=== PATIENT | female | born 1980 ===

== ENCOUNTER 2017-06-30 11:16 | Emergency (ER) | payer SELFPAY ==
[2017-06-30 11:34] VITALS: BP 102/67; PULSE 78; RESP 20; TEMP 98.3; O2SAT 99
--- NOTE | 2017-06-30 13:12 | ED PDOC ---
Lower Extremity Pain/Injury Time Seen by Provider: 06/30/17 11:41 Chief Complaint (Nursing): Lower Extremity Problem/Injury Chief Complaint (Provider): Knee pain, bilateral for 2 weeks History Per: Patient History/Exam Limitations: no limitations Onset/Duration Of Symptoms: Days Current Symptoms Are (Timing): Still Present Severity: Moderate Pain Scale Rating Of: 7 Additional Complaint(s): PT states she has been taking tylenol at home but it is not helping. No fever/ chills. No edema. No trauma. PT has history of knee pain and has had surgery on both knees. Pt states she is not sure of that the surgery was. Past Medical History Reviewed: Historical Data, Nursing Documentation, Vital Signs Vital Signs: Last Vital Signs Temp 98.3 F 06/30/17 11:32 Pulse 78 06/30/17 11:32 Resp 20 06/30/17 11:32 BP 102/67 06/30/17 11:32 Pulse Ox 99 06/30/17 11:32 - Medical History PMH: No Chronic Diseases Other PMH: Knee surgery - Family History Family History: States: No Known Family Hx - Living Arrangements Living Arrangements: With Family - Social History Current smoker - smoking cessation education provided: No Alcohol: None Drugs: Denies - Home Medications Home Medications: Ambulatory Orders Medication Instructions Recorded Ibuprofen [Motrin Tab] 800 mg PO Q6H PRN #20 tab 06/30/17 - Allergies Allergies/Adverse Reactions: Allergies Allergy/AdvReac Type Severity Reaction Status Date / Time No Known Allergies Allergy Verified 06/30/17 11:32 Review of Systems ROS Statement: Except As Marked, All Systems Reviewed And Found Negative Constitutional: Negative for: Fever, Chills, Weakness, Malaise Cardiovascular: Negative for: Chest Pain Musculoskeletal: Positive for: Other (Knee pain) Skin: Negative for: Rash, Bruising Physical Exam - Reviewed Nursing Documentation Reviewed: Yes Vital Signs Reviewed: Yes - Physical Exam Appears: Positive for: Well, Non-toxic, No Acute Distress Head Exam: Positive for: ATRAUMATIC, NORMAL INSPECTION, NORMOCEPHALIC Skin: Positive for: Normal Color (No erythema, no ecchymosis, no lesions of the knees ), Warm Eye Exam: Positive for: Normal appearance ENT: Positive for: Normal ENT Inspection Neck: Positive for: Normal, Painless ROM Respiratory: Negative for: Accessory Muscle Use, Respiratory Distress Pulses-Dorsalis Pedis (L): 2+ Pulses-Dorsalis Pedis (R): 2+ Pulses-Post. Tibialis (L): 2+ Pulses-Post. Tibialis (R): 2+ Back: Positive for: Normal Inspection Extremity: Negative for: Normal ROM (Decreased flexion due to pain ), Tenderness , Deformity, Swelling Neurologic/Psych: Positive for: Alert, Oriented - ECG O2 Sat by Pulse Oximetry: 99 Medical Decision Making Medical Decision Making: x-ray without acute finding. Disposition - Clinical Impression Clinical Impression: Knee pain, bilateral - Patient ED Disposition Is Patient to be Admitted: No Counseled Patient/Family Regarding: Diagnosis, Need For Followup, Rx Given - Disposition Referrals: Johanna Holden MD [Staff Provider] - [facility] [Outside] Disposition: Routine/Home Disposition Time: 13:11 Condition: FAIR Additional Instructions: Ice, elevation. Motrin for pain. Follow-up with orthopedics. Prescriptions: Ibuprofen [Motrin Tab] 800 mg PO Q6H PRN #20 tab PRN Reason: Pain Instructions: Knee Pain (ED) Print Language: UPPER SORBIAN
--- NOTE | 2017-06-30 14:40 | RAD ---
PROCEDURE: Bilateral Knee Radiographs. HISTORY: bilateral knee pain, history of knee surgery COMPARISON: None. FINDINGS: BONES: Right Knee: Normal. No fracture. Left Knee: Normal. No fracture. JOINTS: Right Knee: Normal. No osteoarthritis. Left knee: Normal. No osteoarthritis. SOFT TISSUES: Right Knee: Normal. Left Knee: Normal. JOINT EFFUSION: Right Knee: Tiny right effusion suspected. Left Knee: Trace left effusion suspected OTHER FINDINGS: None. IMPRESSION: No evidence of acute displaced fracture nor dislocation. Suspect at tiny right and trace left-sided joint effusions.
== END 2017-06-30 13:54 | disposition home or self-care (01) ==
LOC: H.ER 11:16
DX: M25.569 Pain in unspecified knee (principal)

== ENCOUNTER 2017-09-22 16:05 | Emergency (ER) | payer SELFPAY ==
[2017-09-22 16:29] VITALS: BP 129/74; PULSE 74; RESP 18; TEMP 97.8; O2SAT 100
--- NOTE | 2017-09-22 17:14 | ED PDOC ---
Lower Extremity Pain/Injury Time Seen by Provider: 09/22/17 17:12 Chief Complaint (Nursing): Lower Extremity Problem/Injury Chief Complaint (Provider): knee pain History Per: Client Engagement Manager ([id number]) History/Exam Limitations: no limitations Additional Complaint(s): 36yo F in ED for eval of knee pain-has a Rx for MRI of knee by primary MD, in ER for MRI. pt denies further acute injury denies inability to walk. states motrin is not effective Past Medical History Reviewed: Historical Data, Nursing Documentation, Vital Signs Vital Signs: Last Vital Signs Temp 97.8 F 09/22/17 16:24 Pulse 74 09/22/17 16:24 Resp 18 09/22/17 16:24 BP 129/74 09/22/17 16:24 Pulse Ox 100 09/22/17 16:24 - Family History Family History: States: No Known Family Hx - Home Medications Home Medications: Ambulatory Orders Medication Instructions Recorded Ibuprofen [Motrin Tab] 800 mg PO Q6H PRN #20 tab 06/30/17 Probenecid 500 mg PO BID #20 tab 09/22/17 - Allergies Allergies/Adverse Reactions: Allergies Allergy/AdvReac Type Severity Reaction Status Date / Time No Known Allergies Allergy Verified 06/30/17 11:32 Review of Systems ROS Statement: Except As Marked, All Systems Reviewed And Found Negative Musculoskeletal: Positive for: Leg Pain Physical Exam - Reviewed Nursing Documentation Reviewed: Yes Vital Signs Reviewed: Yes - Physical Exam Appears: Positive for: Well, Non-toxic, No Acute Distress Skin: Positive for: Normal Color, Warm, DRY Cardiovascular/Chest: Positive for: Regular Rate, Rhythm Respiratory: Positive for: CNT, Normal Breath Sounds Extremity: Positive for: Other (knee pain) Neurologic/Psych: Positive for: Alert, Oriented - ECG O2 Sat by Pulse Oximetry: 100 Medical Decision Making Medical Decision Making: pt advised MRI can't be done via ER and since pt has a Rx to f/u as outpt MRI for appointment. Pt Rx propencid for pain. Disposition - Clinical Impression Clinical Impression: Knee pain, bilateral - Patient ED Disposition Is Patient to be Admitted: No Counseled Patient/Family Regarding: Need For Followup, Rx Given - Disposition Disposition: Routine/Home Disposition Time: 17:16 Condition: STABLE Prescriptions: Probenecid 500 mg PO BID #20 tab Instructions: Knee Pain (ED), Swollen Knee Joint (ED) Print Language: MAORI
== END 2017-09-22 17:38 | disposition home or self-care (01) ==
LOC: H.ER 16:05
DX: M25.569 Pain in unspecified knee (principal)